=== PATIENT | female | born 2000 | race Caucasian/White ===

== ENCOUNTER 2025-08-02 12:46 | Outpatient (CLI) | payer SELFPAY ==
[2025-08-06 11:36] LABS: Pap Test Digital Imaging Done
== END 2025-08-02 12:47 | disposition home or self-care (01) ==
LOC: LKVREF 12:46
PROVIDERS: Visit Provider Physician Assistant Medical
DX: Z87.42 Personal history of other diseases of the female genital tract (principal)
CPT/HCPCS: 88141; 88142; 88175